=== PATIENT | female | born 2000 | race Hispanic/Latino ===

== ENCOUNTER 2019-12-21 00:14 | Emergency (ER) | payer BC ==
--- NOTE | 2019-12-21 08:38 | ULT ---
PRELIMINARY REPORT/[facility]/EMERGENCY AFTER HOURS PROCEDURE: EXAM: US Pelvis, Complete. CLINICAL HISTORY: HX: CRAMPING, QHCG 1400. SEE NOTES ON LAST IMAGE. THANKS TECHNIQUE: Transvaginal pelvic ultrasound (complete) with image documentation. COMPARISON: None provided. FINDINGS: ENDOMETRIUM: Possible gestational sac in the fundal endometrium measuring 5 weeks and 1 day by mean sac diameter b ut without definite decidualization. No definite pole or yolk sac at the time of exam. UTERUS/CERVIX: Normal size and contour. No fibroid detected. RIGHT OVARY: Normal follicles. No adnexal mass. Normal blood flow. LEFT OVARY: Normal blood flow. Probable left ovarian corpus luteum. MISCELLANEOUS: No findings suspicious for ectopic . IMPRESSION: 1. Possible gestational sac in the fundal endometrium measuring 5 weeks and 1 day by mean sac diamete r but without definite decidualization. No definite pole or yolk sac at the time of exam. 2. No findings suspicious for ectopic . 3. The differential primarily includes early intrauterine ; nonvisualized ectopic ; and spontaneous in progress. Recommendation is for serial quantitative beta hCG and follow- up ultrasound as clinically indicated. ELECTRONICALLY SIGNED BY: Grayson Greenwood MD Dec 21, 2019 1:02:18 AM CDT This report is intended for review by the ordering physician only, in accordance of law. If you recei ve this report in error, please call [facility] at [phone]. FINAL REPORT PELVIC ULTRASOUND: HISTORY: Positive quantitative HCG. Patient with cramping. FINDINGS: Real-time imaging of the pelvis was obtained transvaginally. This shows what appears to be an early i ntrauterine gestational sac. Measurements are 4.0 mm, which correspond to 5 weeks and 1 day. A pole or yolk sac is not identified at this time. The right ovary is normal in appearance. The left ov delmy shows an approximately 1.7 cm cyst. Trace free fluid is seen. DOPPLER EVALUATION WITH SPECTRAL ANALYSIS: Normal flow is shown to the adnexa. IMPRESSION: Probable early intrauterine gestational sac. Although no yolk sac or pole is identified, I woul d favor that this is an loyda intrauterine , although the possibility of ectopic is not total ly excluded at this time. Follow-up would be recommended as clinically indicated. Report in agreement with the preliminary report issued by [facility]. POS: OFF
== END 2019-12-21 01:15 | disposition home or self-care (01) ==
LOC: ERS 00:14
DX: O99.89 Other specified diseases and conditions complicating pregnancy, childbirth and the puerperium (principal); R10.9 Unspecified abdominal pain; Z87.891 Personal history of nicotine dependence; Z3A.01 Less than 8 weeks gestation of pregnancy
CPT/HCPCS: 76856